=== PATIENT | female | born 1970 | race Caucasian/White ===

== ENCOUNTER 2021-07-26 15:47 | Emergency (ER) | payer OTHER ==
[2021-07-26 16:55] VITALS: BP 144/72; PULSE 60; TEMP 98.1
[2021-07-26] MEDS ORDERED: KETOROLAC TROMETHAMINE 30 MG/1 ML VIAL IM ONE (17:46)
[2021-07-26] MEDS ORDERED: METHOCARBAMOL 500 MG TABLET PO ONE (17:46)
[2021-07-26] MEDS ORDERED: KETOROLAC TROMETHAMINE 30 MG/1 ML VIAL ONE (17:50)
[2021-07-26] MEDS ORDERED: METHOCARBAMOL 500 MG TABLET ONE (17:50)
== END 2021-07-26 18:27 | disposition home or self-care (01) ==
LOC: JERFT 15:47
PROC: 3E023GC Introduction of Other Therapeutic Substance into Muscle, Percutaneous Approach (ICD-10-PCS; principal; 2021-07-26)
DX: S39.012A Strain of muscle, fascia and tendon of lower back, initial encounter (principal); M62.830 Muscle spasm of back; X50.0XXA Overexertion from strenuous movement or load, initial encounter
CPT/HCPCS: 72100-TC-FY; 99284-25

== ENCOUNTER 2024-09-21 20:51 | Observation (INO) | payer OTHER ==
[2024-09-21 21:02] VITALS: BMI 29.2
[2024-09-21 22:04] LABS: BASO % 1.4 % (0-2.0); EOS % 3.2 % (0-4.5); HEMATOCRIT 38.9 % (32.4-45.2); LYMPH % 40.6 % (8-40); MCH 29.5 pg (25.7-33.7); MCHC 33.5 g/dl (32.0-36.0); MEAN PLT VOLUME 10.4 fl (7.5-11.1); NEUT % 47.8 % (42.8-82.8); PLATELET COUNT 255 10^3/uL (134-434); RBC 4.42 M/mm3 (3.60-5.2); RDW 13.6 % (11.6-15.6); WHITE BLOOD COUNT 8.6 K/mm3 (4.0-10.0)
[2024-09-21 22:22] LABS: POTASSIUM 3.6 mmol/L (3.5-5.1)
[2024-09-21 22:24] LABS: ALBUMIN 4.1 g/dl (3.4-5.0); CALCIUM 9.5 mg/dL (8.5-10.1); MAGNESIUM 1.9 mg/dL (1.8-2.4)
[2024-09-21 22:28] LABS: CREATININE 0.8 mg/dL (0.55-1.3)
[2024-09-21 22:29] LABS: BILIRUBIN,TOTAL 0.2 mg/dL (0.2-1); TOT PROT 7.7 g/dl (6.4-8.2)
[2024-09-22] MEDS ORDERED: ASPIRIN 81 MG CHEWABLE TABLETS ONE (00:44)
[2024-09-22] MEDS: ASPIRIN 81 MG CHEWABLE TABLETS PO ONE ×3 (00:47→00:51)
[2024-09-22] MEDS: SODIUM CHLORIDE 0.9% 500 ML INFUS.BAG IV ONE (00:47)
[2024-09-22 06:01] LABS: CALCIUM 9.3 mg/dL (8.5-10.1)
[2024-09-22 06:02] LABS: ALBUMIN 3.7 g/dl (3.4-5.0); MAGNESIUM 1.9 mg/dL (1.8-2.4)
[2024-09-22 06:05] LABS: CREATININE 0.7 mg/dL (0.55-1.3); PHOSPHOROUS 3.9 mg/dL (2.5-4.9)
[2024-09-22 06:06] LABS: BILIRUBIN,TOTAL 0.3 mg/dL (0.2-1); TOT PROT 6.8 g/dl (6.4-8.2)
[2024-09-22 06:08] LABS: HEMATOCRIT 38.5 % (32.4-45.2); HEMOGLOBIN 12.3 GM/dL (10.7-15.3); MCH 28.7 pg (25.7-33.7); MCHC 32.1 g/dl (32.0-36.0); MEAN CELL VOLUME 89.4 fl (80-96); MEAN PLT VOLUME 10.4 fl (7.5-11.1); PLATELET COUNT 247 10^3/uL (134-434); RDW 13.6 % (11.6-15.6); WHITE BLOOD COUNT 8.6 K/mm3 (4.0-10.0)
[2024-09-22] MEDS: METOPROLOL TARTRATE 25 MG TABLET (FP) PO SCH (12:22)
[2024-09-22] MEDS: LISINOPRIL 10 MG TABLET PO SCH (12:23)
[2024-09-22] MEDS: ENOXAPARIN NA (PORCINE) 40 MG/0.4 ML DISP.SYRIN SQ SCH (12:23)
[2024-09-22 13:03] VITALS: BP 133/68; PULSE 87; RESP 18; TEMP 98.6
[2024-09-22] MEDS ORDERED: ATORVASTATIN CA 40 MG TABLET (FP) PO SCH (22:00)
== END 2024-09-22 13:04 | disposition home or self-care (01) ==
LOC: JER 20:51 → JERBED 09-22 00:15 → J4W 09-22 08:05
PROVIDERS: ADMIT Student in an Organized Health Care Education/Training Program; ATTEND Nurse Practitioner Family
PROC: 3E023GC Introduction of Other Therapeutic Substance into Muscle, Percutaneous Approach (ICD-10-PCS; principal; 2024-09-22)
PROC: 3E0337Z Introduction of Electrolytic and Water Balance Substance into Peripheral Vein, Percutaneous Approach (ICD-10-PCS; 2024-09-22)
DX: I10 Essential (primary) hypertension (principal); R00.2 Palpitations; E78.5 Hyperlipidemia, unspecified; Z29.9 Encounter for prophylactic measures, unspecified
CPT/HCPCS: 0241U-QW; 36415; 71045-TC-FY; 80053; 82962; 83735; 84100; 84439; 84443; 84484; 85025; 85027; 93005; 93010; 93246; 93308; 96372; 99285-25; G0378